=== PATIENT | female | born 1985 | race American Indian/Alaskan Native ===

== ENCOUNTER 2021-04-25 13:17 | Emergency (ER) | payer SELFPAY ==
[2021-04-25 13:39] VITALS: BP 137/74
[2021-04-25] MEDS ORDERED: ACETAMINOPHEN 500 MG TAB PO STA (13:59)
[2021-04-25] MEDS ORDERED: IBUPROFEN 800 MG TAB PO STA (13:59)
--- NOTE | 2021-04-25 14:00 | Emergency Department Report ---
ED General Adult HPI - General Chief complaint: Extremity Injury, Lower Stated complaint: RT LEG PAINS Time Seen by Provider: 04/25/21 13:45 Source: patient Mode of arrival: Ambulatory Limitations: No Limitations - History of Present Illness Initial comments: 35-year-old -[place] female patient presents with complaints of right lower leg injury today. Patient states she fell while on stairmaster at at her gym. She denies any numbness/tingling/weakness in her leg or difficulty moving her leg. She states there is mild bruising to the area. She has not tried any OTC medication for symptoms -: Sudden - Related Data Previous Rx's Medication Instructions Recorded Last Taken Type Naproxen [Naprosyn TAB] 500 mg PO BID PRN #14 tablet 04/25/21 Unknown Rx Allergies Allergy/AdvReac Type Severity Reaction Status Date / Time No Known Allergies Allergy Verified 04/25/21 13:35 ED Review of Systems ROS: Stated complaint: RT LEG PAINS Other details as noted in HPI Musculoskeletal: arthralgia. denies: joint swelling Skin: denies: rash ED Past Medical Hx - Medications Home Medications: Home Medications Medication Instructions Recorded Confirmed Last Taken Type Naproxen [Naprosyn TAB] 500 mg PO BID PRN #14 tablet 04/25/21 Unknown Rx ED Physical Exam - General Limitations: No Limitations General appearance: alert, in no apparent distress - Head Head exam: Present: atraumatic, normocephalic - Eye Eye exam: Present: normal appearance - Respiratory Respiratory exam: Absent: respiratory distress - Cardiovascular Cardiovascular Exam: Present: regular rate - Extremities Exam Extremities exam: Present: tenderness (Noted to anterior mid right tibia shaft with minimal bruising noted; normal perfusion of the foot noted and normal sensation and range of motion) - Neurological Exam Neurological exam: Present: alert, oriented X3, normal gait - Psychiatric Psychiatric exam: Present: normal affect, normal mood - Skin Skin exam: Present: warm, dry, intact, normal color. Absent: rash ED Course Vital Signs 04/25/21 13:36 Temperature 98 F Pulse Rate 74 Respiratory 16 Rate Blood Pressure 137/74 [Left] O2 Sat by Pulse 96 Oximetry ED Medical Decision Making - Radiology Data Radiology results: report reviewed XR tibia fibula 2V RT INDICATION / CLINICAL INFORMATION: R anterior pain after fall injury. COMPARISON: None available. FINDINGS: BONES/JOINT(S): No acute fracture or subluxation. No significant degenerative changes. SOFT TISSUES: No significant abnormality. ADDITIONAL FINDINGS: None. - Medical Decision Making 35-year-old -[place] female patient presents with complaints of right lower leg injury today. Patient states she fell while on stairmaster at at her gym. She denies any numbness/tingling/weakness in her leg or difficulty moving her leg. She states there is mild bruising to the area. She has not tried any OTC medication for symptoms X-rays negative for any acute bony abnormalities. Will treat conservatively for bone contusion with icing and NSAIDs. Recommend follow-up with PCP as needed. Discussed in detail signs and symptoms that should prompt immediate return to the ED with patient who verbalized understanding. Critical care attestation.: If time is entered above; I have spent that time in minutes in the direct care of this critically ill patient, excluding procedure time. ED Disposition Clinical Impression: Injury of right tibia Disposition: 01 HOME / SELF CARE / HOMELESS Is pt being admited?: No Condition: Stable Instructions: Contusion Prescriptions: Naproxen [Naprosyn TAB] 500 mg PO BID PRN #14 tablet PRN Reason: pain Referrals: PRIMARY CARE, [Primary Care Provider] - as needed
--- NOTE | 2021-04-25 14:42 | XRay Report ---
XR tibia fibula 2V RT INDICATION / CLINICAL INFORMATION: R anterior pain after fall injury. COMPARISON: None available. FINDINGS: BONES/JOINT(S): No acute fracture or subluxation. No significant degenerative changes. SOFT TISSUES: No significant abnormality. ADDITIONAL FINDINGS: None. Signer Name: Josef Joesph MD Signed: 04/25/2021 2:37 PM Workstation Name: [email or web address]
== END 2021-04-25 15:49 | disposition home or self-care (01) ==
LOC: ED 13:17
DX: S89.91XA Unspecified injury of right lower leg, initial encounter (principal); X58.XXXA Exposure to other specified factors, initial encounter; Y93.89 Activity, other specified; Y92.89 Other specified places as the place of occurrence of the external cause; Y99.8 Other external cause status
CPT/HCPCS: 99283